=== PATIENT | female | born 1995 | race Caucasian/White ===

== ENCOUNTER 2016-12-30 12:34 | Emergency (ER) | payer SELFPAY ==
[~2016-12-30] VITALS: Ht 165.1 cm; Wt 94.8 kg
--- OUTSIDE RECORDS SUMMARY | 2016-12-30 12:40 | XMS REPORT ---
Author Author SUKH VALDIVIA [facility] eClinicalWorks Address Unknown Phone Unavailable Care Team Providers Care Liquid Flavor Compounder Name Role Phone SUKH VALDIVIA CP Unavailable Allergies, Adverse Reactions, Alerts Substance Reaction Event Type N.K.D.A. Info Not Available Non Drug Allergy Problems Problem Type Condition Code Onset Dates Condition Status Problem Absence of menstruation 626.0 Active Problem Procreative counseling and advice using natural family planning V26.41 Active Problem Polycystic ovaries 256.4 Active Assessment Polycystic ovaries 256.4 Active Medications Medication Code System Code Instructions Start Date End Date Status Dosage Advantage NDC 0 not defined metformin NDC 0 500 mg 2 tablet by Oral route 1 time per day Procedures Procedure Coding System Code Date Office Visit, Est Pt., Level 3 CPT-4 69197 Dec 12, 2015 Vital Signs Date/Time: Dec 12, 2015 Temperature 98 F Weight 216.2 lbs Height 65 in BMI 35.97 Index Blood Pressure Diastolic 70 mmHg Blood Pressure Systolic 110 mmHg Cardiac Monitoring Heart Rate 78 bpm Results No Known Results Summary Purpose eClinicalWorks Submission
[2016-12-30 12:54] LABS: BILIRUBIN,URINE NEGATIVE (NEGATIVE); KETONES,URINE NEGATIVE (NEGATIVE); LEUKOCYTE ESTERASE ,URINE 2+ (NEGATIVE); NITRITE,URINE NEGATIVE (NEGATIVE); PH,URINE 5 (5-9); PROTEIN,URINE 3+ (NEGATIVE); UROBILINOGEN,URINE 1 MG/DL (NORMAL)
[2016-12-30] MEDS ORDERED: METF500T4 PO (12:59)
--- NOTE | 2016-12-30 13:33 | ED GU-Female ---
General Chief Complaint: -Female Stated Complaint: MUCOUS IN URINE Nursing Triage Note: AMB TO ROOM REPORTS THAT HER LMP WAS NOV 10 TODAY PASSED A LG AMOUNT OF MUCOUS WITH SOME SPOTTING. Nursing Sepsis Screen: No Definite Risk Source: patient, family Exam Limitations: no limitations History of Present Illness Time seen by provider: 13:26 Initial Comments The patient is a 21-year-old white female who presents today with the observation of having passed a mucous plug vaginally with some accompanying spotting. She reports that she has been told she has polycystic ovary disease. She has been trying for more than 2 years to get . Her provider had placed her on metformin to hope to improve ovulation. Her last recognizable menstrual period was November 10. Timing/Duration: this morning Severity/Quality: mild Location: vaginal Allergies and Home Medications Home Medications Metformin HCl 500 Mg Tablet 500 MG PO (Reported) Constitutional: see HPI EENTM: no symptoms reported Respiratory: no symptoms reported Cardiovascular: no symptoms reported Gastrointestinal: no symptoms reported Genitourinary: see HPI Musculoskeletal: no symptoms reported Skin: no symptoms reported Psychiatric/Neurological: No Symptoms Reported Past [id number]-[id number]-Ztzkza Hx Patient Social History Alcohol Use: Denies Use Recreational Drug Use: No Smoking Status: Never a Smoker Recent Foreign Travel: No Contact w/Someone Who Travel: No Recent Infectious Disease Expo: No Recent Hopitalizations: No Physical Abuse Screen: No Sexual Abuse: No Seasonal Allergies Seasonal Allergies: No Surgeries HX Surgeries: No Respiratory Hx Respiratory Disorders: No Cardiovascular Hx Cardiac Disorders: No Neurological Hx Neurological Disorders: No Reproductive System Hx Reproductive Disorders: Yes Female Reproductive Disorders: Polycystic Ovarian Dis Gastrointestinal Hx Gastrointestinal Disorders: No Musculoskeletal Hx Musculoskeletal Disorders: No Physical Exam Vital Signs Vital Sign - Last 12Hours 12/30/16 12:38 Temp 100.0 Pulse 86 Resp 18 B/P 144/86 Pulse Ox 98 O2 Delivery Room Air Capillary Refill : Less Than 3 Seconds General Appearance: WD/WN no apparent distress HEENT: normal ENT inspection Neck: full range of motion Cardiovascular: normal peripheral pulses regular rate, rhythm no edema no gallop no JVD no murmur Respiratory: chest non-tender lungs clear normal breath sounds no respiratory distress no accessory muscle use respiratory distress Progress/Results/Core Measures Results/Orders Lab Results Laboratory Tests Test 12/30/16 12:39 Range/Units Urine Bacteria TRACE /HPF Urine Bilirubin NEGATIVE NEGATIVE Urine Casts NONE /LPF Urine Clarity VERY CLOUDY H Urine Color YELLOW Urine Crystals NONE /LPF Urine Culture Indicated YES Urine Glucose (UA) NEGATIVE NEGATIVE Urine Ketones NEGATIVE NEGATIVE Urine Leukocyte Esterase 2+ H NEGATIVE Urine Mucus MODERATE H /LPF Urine Nitrite NEGATIVE NEGATIVE Urine Protein 3+ H NEGATIVE Urine RBC TNTC H /HPF Urine RBC (Auto) 5+ H NEGATIVE Urine Specific [place] 1.020 1.016-1.022 Urine Squamous Epithelial Cells 2-5 /HPF Urine Urobilinogen 1 NORMAL MG/DL Urine WBC 2-5 /HPF Urine pH 5 5-9 My Orders Orders-NITIN STRICKLAND MD Ua Culture If Indicated (12/30/16 12:45) Urine Bedside (12/30/16 12:58) Urine Culture (12/30/16 12:39) Vital Signs/I&O Vital Sign - Last 12Hours 12/30/16 12:38 Temp 100.0 Pulse 86 Resp 18 B/P 144/86 Pulse Ox 98 O2 Delivery Room Air Blood Pressure Mean: 105 Point of Care Testing Urine -Bedside: Positive Departure Communication Progress Notes Bedside UPG was positive. Discussion followed with the patient and her mother. With the positive test the first ANDIE has been passed. She was informed that statistically 50 percent of pregnancies ended in miscarriage. But from her standpoint this would confirm ovulation. She is advised to see her provider relative to the continued use of metformin. Further if more menstrual Like flow occurs a repeat test should be performed. She relates to pleasant surprise at this point Impression Impression: Primary Impression: Spotting in early Disposition: 01 HOME, SELF-CARE Condition: Stable/Unchanged Departure-Patient Inst. Referrals: [facility] (PCP/Family) Primary Care Physician Patient Instructions: Activity During Add. Discharge Instructions: All discharge instructions reviewed with patient and/or family. Voiced understanding. Touch base tomorrow with your provider relative to continuation of metformin and additional testing to confirm and dates NITIN STRICKLAND MD Dec 30, 2016 13:33
[2016-12-30 13:43] VITALS: BP 144/86
== END 2016-12-30 13:48 | disposition home or self-care (01) ==
LOC: EDUNIT# 12:34 → ER 12:36
DX: O26.851 Spotting complicating pregnancy, first trimester (principal); Z3A.01 Less than 8 weeks gestation of pregnancy
CPT/HCPCS: 81000; 84703; 87088; 99282